=== PATIENT | male | born 1985 | race Caucasian/White ===

== ENCOUNTER 2017-02-08 05:32 | Emergency (ER) | payer BC, OTHER ==
[~2017-02-08] VITALS: Ht 182.9 cm; Wt 95.3 kg
--- NOTE | 2017-02-08 05:46 | PHYS DOC ---
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 He had been drinking gatorade and water and urinating. He started feeling weak and like he was going to pass out. He denies chest pain; no SOA. No abdominal pain, no nausea, vomiting and diarrhea. No urinary complaints. No recent travel. Review of Systems Review of Systems Constitutional: Denies fever or chills Eyes: Denies change in visual acuity, redness, or eye pain HENT: Denies nasal congestion or sore throat Respiratory: Denies cough or shortness of breath Cardiovascular: No chest pain, no SOA. GI: Denies abdominal pain, nausea, vomiting, bloody stools or diarrhea : Denies dysuria or hematuria Musculoskeletal: Denies back pain or joint pain Integument: Denies rash or skin lesions Neurologic: Denies headache, focal weakness or sensory changes. Some light headedness; no syncope. Allergies Allergies Allergies Coded Allergies Type Severity Reaction Last Updated Verified amoxicillin Allergy Intermediate Hives 08/27/15 Yes Physical Exam Physical Exam Constitutional: Well developed, well nourished, no acute distress, non-toxic appearance. HENT: Normocephalic, atraumatic, bilateral external ears normal, oropharynx moist, no oral exudates, nose normal. Eyes: PERRLA, EOMI, conjunctiva normal, no discharge. Neck: Normal range of motion, no tenderness, supple, no stridor. Cardiovascular:Heart rate regular rhythm, no murmur Lungs & Thorax: Bilateral breath sounds clear to auscultation Abdomen: Bowel sounds normal, soft, no tenderness, no masses, no pulsatile masses. Skin: Warm, dry, no erythema, no rash. Back: No tenderness, no CVA tenderness. Extremities: No tenderness, no cyanosis, no clubbing, ROM intact, no edema. Neurologic: Alert and oriented X 3, normal motor function, normal sensory function, no focal deficits noted. Psychologic: Affect normal, judgement normal, mood normal. EKG EKG EC: Sinus rhythm, heart rate 87 bpm, upright axis, QTC of 407, MT 170, QRS of 68, patient with contour abnormality noted in the anterior septal leads, no concerning ST elevations or depressions, T-wave inversions noted in lead 3, with mild flattening in aVF, otherwise no abnormalities identified. As interpreted by me. No prior for comparison. Course & Med Decision Making Course & Med Decision Making Pertinent Labs and Imaging studies reviewed. (See chart for details) Evaluated patient upon arrival. Patient is in no acute distress presently but has some tingling. Lab ordered. Care of patient turned over at shift change. I assumed care of this patient at time of shift change from Dr. Rocha. Laboratory studies and EKG are pending at this time, patient is receiving IV fluids. When I evaluated patient, he stated he was feeling better, but is experiencing a mild headache, and Tylenol administered with good effect. Patient experiencing her syncope, shortly before his arrival in the ED, denies the lightheadedness or other symptoms at this time. Laboratory studies reveal a mildly elevated creatinine at 1.4, with a normal troponin, and a mildly elevated CK and CK-MB. ECG reveals contour normality is in the anterior septal leads, no evidence of acute ischemia. Chest x-ray is unremarkable. Patient states he again is feeling better on his second reevaluation, orthostatics are negative at this time, patient ambulating in the emergency department without recurrence of symptoms. I did discuss findings as above with Dr. Sevilla of cardiology, and agreement that patient's mildly elevated CK and CK-MB are consistent with mild dehydration, not indicative of acute cardiac ischemia, he recommends repeating creatinine, and if it is normalized after receiving fluids , the patient would be welcome to follow up with him in his office for additional evaluation as needed. I did discuss this with patient, repeat creatinine was obtained, has normalized to 1.1, although electrolytes within normal limits, and as stated patient has had full resolution of symptoms. Discussed follow with patient's primary care provider, and also Dr. Sevilla for additional evaluation as needed as directed by his primary care provider, patient voices understanding and agreement with plan to continue good hydration , and avoid heat, states that this time he does not require any documentation for his employer, they are aware of this visit here today. Patient discharged home in stable condition with follow-up, plan and precautions as above. Dragon Disclaimer Dragon Disclaimer This chart was dictated in whole or in part using Voice Recognition software in a busy, high-work load, and often noisy Emergency Department environment. It may contain unintended and wholly unrecognized errors or omissions. Departure: Impression: Primary Impression: Weakness Additional Impression: Dehydration Disposition: 01 HOME, SELF-CARE Condition: IMPROVED Referrals: NELSON LACKEY (PCP) Departure Departure: Impression: Primary Impression: Weakness Additional Impression: Dehydration Disposition: 01 HOME, SELF-CARE Condition: IMPROVED Referrals: NELSON LACKEY (PCP) Problem Qualifiers KYA ROCHA MD Feb 08, 2017 05:46 IRAJ ORTIZ DO Feb 08, 2017 06:09
--- NOTE | 2017-02-08 06:07 | EKG ---
[address] [address] Test Date: 2017-02-08 Test Time: 05:59:57 Pat Name: VINCENT OJEDA Department: Room: Gender: M Qualitative Field Coordinator: : 1985 Requested By: KYA ROCHA Order Number: [id number] Reading MD: Measurements Intervals [place] Rate: 87 P: 35 AK: 170 QRS: 46 QRSD: 68 T: 24 QT: 338 QTc: 407 Interpretive Statements SINUS RHYTHM R-S TRANSITION ZONE IN V LEADS DISPLACED TO THE RIGHT QRS(T) CONTOUR ABNORMALITY CONSIDER ANTEROSEPTAL MYOCARDIAL DAMAGE RI6.01 Unconfirmed report No previous ECG available for comparison
[2017-02-08 06:23] LABS: BASO % 1 % (0-3); EOS # 0.1 x10^3/uL (0.0-0.7); EOS % 1 % (0-3); HEMATOCRIT 42.3 % (39.0-53.0); HEMOGLOBIN 14.6 g/dL (13.0-17.5); LYMPH # 1.3 x10^3/uL (1.0-4.8); LYMPH % 19 % (24-48); MEAN CORPUSCULAR HEMOGLOBIN 31 pg (25-35); MEAN CORPUSCULAR HGB CONC 35 g/dL (31-37); MEAN CORPUSCULAR VOLUME 89 fL (79-100); MONO # 0.4 x10^3/uL (0.0-1.1); MONO % 6 % (0-9); NEUT # 5.1 x10^3uL (1.8-7.7); NEUT % 73 % (31-73); PLATELET COUNT 175 x10^3/uL (140-400); RED BLOOD COUNT 4.74 x10^6/uL (4.30-5.70); RED CELL DISTRIBUTION WIDTH 13.4 % (11.5-14.5); WHITE BLOOD COUNT 6.9 x10^3/uL (4.0-11.0)
[2017-02-08] MEDS ORDERED: ONDANSETRON PF 4 MG/2 ML VIAL. IV ONE (06:30)
[2017-02-08] MEDS ORDERED: IV NORMAL SALINE 1,000ML 1,000 ML IV SCH (06:30)
[2017-02-08 07:02] LABS: ALBUMIN 3.9 g/dL (3.4-5.0); ALBUMIN/GLOBULIN RATIO 1.1 (1.0-1.7); CALCIUM 8.8 mg/dL (8.5-10.1); CREATININE 1.4 mg/dL (0.7-1.3); DIRECT BILIRUBIN 0.1 mg/dL (0.0-0.2); GFR 58.7; POTASSIUM 3.9 mmol/L (3.5-5.1); TOTAL BILIRUBIN 0.3 mg/dL (0.2-1.0); TOTAL PROTEIN 7.3 g/dL (6.4-8.2)
[2017-02-08 07:02] LABS: BARBITURATES NEG (NEG); BENZODIAZEPINES NEG (NEG); CANNABINOIDS NEG (NEG); COCAINE NEG (NEG); METHADONE NEG (NEG); OPIATES NEG (NEG); PHENCYCLIDINE NEG (NEG)
[2017-02-08 07:04] LABS: AMPHETAMINE/METHAMPHETAMINE NEG (NEG)
[2017-02-08 07:07] LABS: BACTERIA,URINE 0 /HPF (0-FEW); BILIRUBIN,URINE NEG (NEG); CLARITY,URINE CLEAR; COLOR,URINE STRAW; GLUCOSE,URINE NEG (NEG); NITRITE,URINE NEG (NEG); RBC,URINE 0 /HPF (0-2); SQUAMOUS EPITHELIAL CELL,UR OCC /LPF; UROBILINOGEN,URINE 0.2 mg/dL (0.2 mg/dL); WBC,URINE 0 /HPF (0-4)
[2017-02-08] MEDS ORDERED: ACETAMINOPHEN 500 MG TABLET PO ONE ×2 (07:17→08:30)
--- NOTE | 2017-02-08 08:38 | RAD ---
INDICATION: Near-syncope COMPARISON: 08/27/2015 FINDINGS: 2 views of chest obtained. No focal airspace consolidation. Mediastinal contour is unremarkable. No gross osseous destructive lesion. IMPRESSION: No focal airspace consolidation or edema.
[2017-02-08 09:20] VITALS: BP 134/77
[2017-02-12 07:30] LABS: HEMOGLOBIN ISTAT 13.6 gm/dL
== END 2017-02-08 09:45 | disposition home or self-care (01) ==
LOC: ER 05:32
DX: R53.1 Weakness (principal); E86.0 Dehydration; J45.909 Unspecified asthma, uncomplicated; Z88.1 Allergy status to other antibiotic agents
CPT/HCPCS: 36415; 71020; 80047; 80053; 80076; 80305; 80320; 81001; 82553; 84484; 85027; 93005; 96361; 96374; 99285; J2405; G0481; J7030

== ENCOUNTER → 2017-05-03 | Outpatient (CLI) | payer BC ==
--- NOTE | 2017-05-03 14:46 | RAD ---
Indication shortness of air. Frontal and lateral views of the chest were obtained and are compared to an exam 02/08/2017. The heart, pulmonary vessels and mediastinum appear normal. The lungs are clear. There is no pleural fluid or pneumothorax. There has not been a significant change when compared to the previous exam. IMPRESSION: No acute finding. No significant change
== END | disposition home or self-care (01) ==
LOC: DXRADRC 14:30
PROVIDERS: ATTEND Physician Assistant Medical
DX: J45.909 Unspecified asthma, uncomplicated (principal)
CPT/HCPCS: 71020

== ENCOUNTER → 2019-04-06 | Outpatient (CLI) | payer BC ==
--- NOTE | 2019-04-06 08:48 | RAD ---
EXAM: CT Chest without IV contrast CLINICAL HISTORY: History of lung nodule COMPARISON: None. TECHNIQUE: CT of the chest without intravenous contrast. Axial, coronal and sagittal reformatted images were generated. ---PQRS compliance statement - One or more of the following individualized dose reduction techniques were utilized for this study: 1. Automated exposure control 2. Adjustment of the mA and/or kV according to patient size 3. Use of iterative reconstruction technique--- FINDINGS: Lack of intravenous contrast limits evaluation of solid organs, vasculature, and lymph nodes. Chest: The heart is not enlarged. No pericardial effusion. Within the constraints of noncontrast exam, a precarinal lymph node measures 1.6 x 1.1 cm, previously not definitively seen. A right paratracheal lymph node measures 1.9 x 1.6 cm (series 2 image 19), new. Prominence of the right hilum, suspect underlying enlarged lymph node although delineation limited on this noncontrast exam. No pleural effusion or pneumothorax. A 9 x 13 mm right lower lobe lung nodule (image 3 image 75; series 2 image 46) is seen. A 1 cm right suprahilar lung nodule (series 2 image 41) is seen. Linear opacities in the lingula likely scarring/atelectasis. Visualized Upper abdomen: Upper abdomen is unremarkable. Bones: Osseous structures are grossly unremarkable. IMPRESSION: 1. A 1.3 x 0.9 cm right lower lobe lung nodule is seen, new compared to 08/27/2015. Given the enlarged mediastinal lymph nodes and suspected hilar lymphadenopathy, these findings are suspicious for malignancy or metastasis. Further evaluation with PET/CT would provide additional details as clinically indicated. Electronically signed by: Matthew Avalos MD (04/06/2019 8:45 AM) [facility]
== END | disposition home or self-care (01) ==
LOC: CT 08:02
PROVIDERS: ATTEND Internal Medicine Pulmonary Disease
DX: R91.8 Other nonspecific abnormal finding of lung field (principal); R59.0 Localized enlarged lymph nodes
CPT/HCPCS: 71250